=== PATIENT | male | born 1980 | race Caucasian/White ===

== ENCOUNTER → 2018-11-06 | Day surgery (SDC) | payer OTHER ==
[~2018-11-06] MED LIST: FENTANYL CITRATE/PF 100MCG/2 ML INJ ONE; MIDAZOLAM HCL 2 MG/2 ML VIAL ONE; OMEPRAZOLE40 MG PO; PROPOFOL IV EMULSION 10 MG/ML 50 ML VIAL ONE; SUCRALFATE1 GM PO
--- OUTSIDE RECORDS SUMMARY | 2018-11-06 06:13 | XMS REPORT | Clinical Summary ---
Author Author [facility] Organization [facility] Address Unknown Phone Unavailable Care Team Providers Care [place] Captain Name Role Phone Bruce Méndez MD PCP Allergies Comments Active Allergy Reactions Severity Noted Date No Known Drug Allergies 2015 Medications End Date Status Medication Sig Dispensed Refills Start Date Active lidocaine Use twice 28.3 g 2 HCl-hydrocortison ac daily 6 3-0.5 % creamIndications: Hemorrhoids, unspecified hemorrhoid type Active Problems Problem Noted Date Hemorrhoids 03/05/2016 Anxiety disorder 03/05/2016 Abnormal thyroid stimulating hormone level 2015 Fever 2015 Impacted cerumen 2015 Influenza 2015 Insomnia 2015 Low back pain 2015 Nasal congestion 2015 Otitis externa 2015 Sciatica 2015 Abnormal thyroid stimulating hormone (TSH) level 2015 Tobacco use disorder, continuous 2015 Tobacco use 2015 Gastroesophageal reflux disease 08/03/2014 Overview: On Protonix and Carafate Family History Medical History Relation Name Comments Liver cancer Father No Known Problems Sister Relation Name Status Comments Father Alive Maternal Grandfather Maternal Grandmother Mother Alive Paternal Grandfather Paternal Grandmother Sister Alive Social History Date Tobacco Use Types Packs/Day Years Used Current Every Day Smoker Cigarettes 1 17 Smokeless Tobacco: Never Used Tobacco Cessation: Ready to Quit: Yes Alcohol Use Drinks/Week oz/Week Comments Yes socially Sex Assigned at Date Recorded Not on file Industry Job Start Date Occupation Not on file Not on file Not on file Travel End Travel History Travel Start No recent travel history available. Last Filed Vital Signs Not on file Plan of Treatment Health Maintenance Due Date Last Done Comments INFLUENZA VACCINE 05/03/2018 Results Not on fileafter 11/05/2017 Insurance Payer Benefit Subscriber ID Type Phone Address Plan / Group [facility] xxxxxxxxx HMO/PPO THCARE CHOICE/CHO ICE + Advance Directives Patient has advance care planning documents on file. For more information, zo brock contact: Aniket Perdomo [address] [place] [address]
--- NOTE | 2018-11-06 07:15 | NUR ---
SPIRITUAL CARE - Pre-Surgery Assessment: Pt in bed. Pt's at bedside. Pt reported supportive attention from family and friends. Intervention: I provided pastoral presence, hospitality, sympathetic listening, and prayer. I acquainted pt with availability of kennel manager while hospitalized. Outcome: Pt expressed appreciation for visit. No need for follow up indicated at this time. NISH BARRIENTOS [employer] Spiritual Care Department O: [phone] Pager: [phone] ([phone] number calling from)
[2018-11-06 08:31] VITALS: BP 125/66
--- NOTE | 2018-11-06 08:36 | Operative Report ---
DATE OF PROCEDURE: November 06, 2018 REFERRING PHYSICIAN: Dr. Angel Bear PROCEDURE PERFORMED: Esophagogastroduodenoscopy with esophageal dilatation biopsies. INDICATIONS FOR EGD: Dysphagia, upper abdominal pain, and history of gastric ulcers. MEDICATION: Patient was done under MAC. Please see anesthesiologist's note. PROCEDURE: With the patient in the left lateral decubitus position, the flexible fiberoptic Olympus gastroscope was introduced into the esophagus under direct visualization without any difficulty. There was some patchy erythema noted in the distal esophagus. The esophagus was then dilated to a size 52-[place] Vigil. The scope was then advanced with ease into the stomach traversing a small sliding hiatal hernia. Mucosa overlying the antrum and the body revealed some patchy erythema and mild to moderate edema, and biopsies were obtained and sent to stain for H. pylori. Pylorus was of normal contour and shape. It was intubated with ease. The scope was advanced all the way to the 2nd portion of the duodenum. Biopsies were obtained from the proximal 2nd portion and the duodenal bulb to rule out sprue. The scope was then withdrawn back into the stomach and retroflexed. The mucosa overlying the fundus and cardia appeared to be within normal limits. The scope was then straightened out. It was subsequently withdrawn. Patient tolerated the procedure well. IMPRESSION 1. Distal esophagitis, mild. 2. Esophagus dilated to size 52-[place] Vigil. 3. Small sliding hiatal hernia. 4. Gastritis, biopsied. Biopsy sent to stain for Helicobacter pylori. 5. Rule out sprue. PLAN: Follow up histology. Initiate Protonix 40 mg 1 p.o. q.a.m. a.c. Job#: [id number] [place] cc:TINA BEAR DO
== END | disposition home or self-care (01) ==
LOC: OR 06:11
PROVIDERS: ATTEND Internal Medicine Gastroenterology
DX: K29.70 Gastritis, unspecified, without bleeding (principal); K20.9 Esophagitis, unspecified; K21.9 Gastro-esophageal reflux disease without esophagitis; K44.9 Diaphragmatic hernia without obstruction or gangrene
CPT/HCPCS: 43239; 43450; J2250; J2704